=== PATIENT | male | born 1990 | race Caucasian/White ===

== ENCOUNTER 2016-06-30 11:32 | Inpatient (IN) | payer OTHER ==
[~2016-06-30] VITALS: Ht 152.4 cm; Wt 36.7 kg
[2016-06-30 14:20] VITALS: BP 108/70
[2016-06-30 19:00] VITALS: BP 123/79
[2016-06-30] MEDS ORDERED: MAG HYDROX/ALUMINUM HYDROX/SMC 30 ML ORAL.SUSP PO PRN (19:00)
[2016-06-30] MEDS ORDERED: IBUPROFEN 400 MG TABLET. PO PRN (19:15)
[2016-06-30] MEDS ORDERED: ACETAMINOPHEN 500 MG TABLET PO PRN (19:15)
[2016-06-30] MEDS: DOCUSATE SODIUM 100 MG CAPSULE PO SCH (22:03)
[2016-06-30] MEDS: CEPHALEXIN 250 MG CAPSULE PO SCH (22:04)
[2016-06-30 23:00] VITALS: BP 108/72
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
[2016-07-01 03:00] VITALS: BP 115/70
[2016-07-01 07:52] VITALS: BP 130/78
[2016-07-01] MEDS: DOCUSATE SODIUM 100 MG CAPSULE PO SCH (09:26)
[2016-07-01] MEDS: CEPHALEXIN 250 MG CAPSULE PO SCH ×2 (09:26→14:43)
[2016-07-01 11:39] VITALS: BP 127/71
[2016-07-01 12:47] LABS: BASO # 0.1 x10^3/uL (0.0-0.2); BASO % 1 % (0-3); EOS % 2 % (0-3); HEMATOCRIT 41.5 % (39.0-53.0); HEMOGLOBIN 13.9 g/dL (13.0-17.5); LYMPH # 1.7 x10^3/uL (1.0-4.8); LYMPH % 25 % (24-48); MEAN CORPUSCULAR HEMOGLOBIN 29 pg (25-35); MEAN CORPUSCULAR HGB CONC 34 g/dL (31-37); MEAN CORPUSCULAR VOLUME 88 fL (79-100); MONO % 16 % (0-9); NEUT % 57 % (31-73); PLATELET COUNT 232 x10^3/uL (140-400); RED BLOOD COUNT 4.74 x10^6/uL (4.30-5.70); RED CELL DISTRIBUTION WIDTH 12.7 % (11.5-14.5); WHITE BLOOD COUNT 6.6 x10^3/uL (4.0-11.0)
[2016-07-01 13:02] LABS: CALCIUM 8.9 mg/dL (8.5-10.1); CREATININE 0.6 mg/dL (0.7-1.3); GFR 164.2; POTASSIUM 3.8 mmol/L (3.5-5.1)
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
[2016-07-01 15:21] VITALS: BP 120/72
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
[2016-07-01] MEDS ORDERED: silver sulfADIAZINE 1% CREAM 400GM JAR. TP SCH (21:00)
== END 2016-07-01 17:00 | disposition home or self-care (01) | DRG 935 ==
LOC: 6 SOUTH 14:28
PROVIDERS: ADMIT Internal Medicine Hematology & Oncology; ATTEND Internal Medicine Hematology & Oncology
DX: T25.121A Burn of first degree of right foot, initial encounter (principal); X16.XXXA Contact with hot heating appliances, radiators and pipes, initial encounter; F79 Unspecified intellectual disabilities; Y93.89 Activity, other specified; Y92.89 Other specified places as the place of occurrence of the external cause; Y99.8 Other external cause status; Z99.3 Dependence on wheelchair; Z88.1 Allergy status to other antibiotic agents; Z91.040 Latex allergy status
CPT/HCPCS: 36415; 80048; 85027; 85651